=== PATIENT | female | born 1985 | race Caucasian/White ===

== ENCOUNTER 2023-05-09 17:23 | Emergency (ER) | payer BC ==
[2023-05-09] MEDS ORDERED: Sodium Chloride 0.9% 1,000 ML ONE (17:36)
[2023-05-09] MEDS ORDERED: Promethazine HCl 25 MG/ML VIAL ONE (17:36)
[2023-05-09 17:54] LABS: Bilirubin Negative (Negative); Blood, Urine Moderate (Negative); Clarity Clear (Clear); Glucose, Urine (Dipstick) Negative (Negative); Ketone, Urine 15 mg/dL (Negative); Leukocyte Trace (Negative); Nitrite Negative (Negative); Protein, Urine (Dipstick) Trace mg/dL (Neg-Trace); Urobilinogen 0.2 mg/dL (Less than 2); pH, Urine 5.5 (5.0-9.0)
[2023-05-09] MEDS ORDERED: Famotidine/PF 20 mg/2ml Vial ONE (17:55)
[2023-05-09 17:58] LABS: Specific Gravity, Urine 1.022 (1.002-1.036)
[2023-05-09 17:59] LABS: CAUTI Indications for Culture Pelvic or flank pain; RBC/HPF 0-3 HPF (0-3)
[2023-05-09 18:00] LABS: BHCG - Serum Negative (NEGATIVE); Bacteria/HPF 1+ HPF (None Seen); Pregs Control Bar Appear? YES (CONTROL BAR)
[2023-05-09 18:01] LABS: Urine Culture Reflex No No
[2023-05-09 18:05] LABS: ALT (SGPT) 16 U/L (8-55); AST (SGOT) 18 U/L (5-34); Albumin 4.5 g/dL (3.5-5.0); Alkaline Phosphatase 50 U/L (40-110); Anion Gap 16 mmol/L (10-20); BUN (Urea Nitrogen) 7 mg/dL (7.0-18.7); Bilirubin, Total 0.5 mg/dL (0.2-1.2); Calc. Creatinine Clearance 0 mL/min (70-130); Calcium 9.3 mg/dL (7.8-10.44); Carbon Dioxide 23 mmol/L (22-29); Chloride 99 mmol/L (98-107); Estimated GFR 112; Glucose 106 mg/dL (70-105); Hematocrit 43.3 % (36.0-47.0); Hemoglobin 15.1 g/dL (12.0-16.0); Lipase 11 U/L (8-78); Mean Corpuscular HGB CONC 34.9 g/dL (32.0-36.0); Mean Corpuscular Hemoglobin 31.5 pg (27.0-31.0); Mean Corpuscular Volume 90.2 fl (78.0-98.0); Mean Platelet Volume 9.5 fL (7.4-10.4); Platelet Count 227 10x3/uL (130-400); Potassium 3.5 mmol/L (3.5-5.1); Protein, Total 7.5 g/dL (6.0-8.3); RBC Distribution Width 10.9 % (11.5-14.5); Sodium 134 mmol/L (136-145); White Blood Cell (WBC) Count 5.2 10x3/uL (4.8-10.8)
[2023-05-09 18:33] LABS: Band 6 % (5-11); Lymphocytes 24 % (21-51); MDiff Complete? YES; Monocytes 3 % (0-10); Neutrophil 56 % (42-75); Platelet Adequacy Comment Appears Adequate
== END 2023-05-09 18:59 | disposition home or self-care (01) ==
LOC: NAV ERS 17:23
DX: K52.9 Noninfective gastroenteritis and colitis, unspecified (principal); F17.210 Nicotine dependence, cigarettes, uncomplicated
CPT/HCPCS: 80053; 81001; 83690; 84703; 85025; 87086; 96365; 96375; J2550; J7050; S0028

== ENCOUNTER 2023-08-30 12:05 | Emergency (ER) | payer BC ==
[2023-08-30] MEDS ORDERED: Promethazine HCl 25 MG/ML VIAL ONE ×2 (12:46→14:03)
== END 2023-08-30 15:55 | disposition home or self-care (01) ==
LOC: NAV ERS 12:05
DX: R42 Dizziness and giddiness (principal); F17.210 Nicotine dependence, cigarettes, uncomplicated
CPT/HCPCS: 96372; 99283; J2550